=== PATIENT | male | born 2000 ===

== ENCOUNTER 2020-10-26 18:18 | Emergency (ER) | payer BC ==
[2020-10-26] MEDS ORDERED: Ketorolac Tromethamine 30 MG/ML VIAL ONE (20:32)
[2020-10-26] MEDS ORDERED: diphenhydrAMINE 50 MG/ML VIAL ONE (20:32)
[2020-10-26] MEDS ORDERED: Metoclopramide HCl 10 MG/2 ML VIAL ONE (20:32)
== END 2020-10-26 22:13 | disposition home or self-care (01) ==
LOC: ERS 18:18
DX: R51.9 Headache, unspecified (principal)
CPT/HCPCS: 96365; 96375; J1200; J1885; J2765